=== PATIENT | female | born 2000 | race Caucasian/White ===

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

== ENCOUNTER 2021-06-14 16:56 | Emergency (ER) | payer OTHER, SELFPAY ==
--- NOTE | ~2021-06-14 | XR_ITS ---
EXAMINATION: XR chest 2V DATE: 06/14/2021 17:31 INDICATION: Chest tightness after taking decongestant TECHNIQUE: PA and lateral views of the chest were obtained. COMPARISON: None FINDINGS: The lungs are clear with no focal airspace opacities, pulmonary edema, pleural effusion or pneumothor ax. The cardiomediastinal silhouette is normal. Chronic appearing mild anterior wedging of a midthora cic vertebral body, likely T7. IMPRESSION: 1. No acute cardiopulmonary disease. Reviewed, dictated and finalized at location A.
[2021-06-14 17:07] VITALS: BP 134/77; PULSE 102; RESP 16; TEMP 37.1; O2SAT 99
--- NOTE | 2021-06-14 17:34 | ED.GENADULT ---
HPI - General Adult General Chief complaint: Upper Respiratory Infection Stated complaint: congestion/chest tightness Time Seen by Provider: 06/14/21 17:10 Source: patient and RN notes reviewed Mode of arrival: ambulatory Limitations: no limitations History of Present Illness HPI narrative: 21-year-old female presents with complaints of sneezing, cough, and chest congestion, hives, chills and sweats, and fatigue for 3 days. Clarice reports getting a facial and becoming dizzy and breaking out with hives prior to this visit. ?Mucinex fast max DM, last today at noon and decreased po intake today. ?Dry cough with chest congestion. ?Rhinorrhea and nasal congestion. ?No sore throat. ?Denies facial or tongue swelling. ?No high fevers, drooling, neck or throat swelling. ?No chest pain, wheezing, or shortness of breath. ?Denies nausea, vomiting, and abdominal pain. ?Tolerating liquids well. ?LMP 05/30/21. Remains active. ?The patient reports she has not been diagnosed with COVID-19. ?The patient reports she is not waiting for the results of a COVID-19 lab test. ?The patient reports she does not have weakness, fatigue, or myalgia. The patient reports she does not have any loss of taste and diarrhea. ?Denies recent traveling. ?Denies concerns for COVID-19 or exposures. ?At this time, the patient is not suspected of having COVID-19. Some parts of this dictation were generated by voice recognition software and may contain typographical and/or grammatical inaccuracies. Related Data Home Medications Medication Instructions Recorded Confirmed drospirenone 3 mg-ethinyl 1 tablet PO DAILY 08/01/20 06/14/21 estradiol 0.02 mg tablet Allergies Allergy/AdvReac Type Severity Reaction Status Date / Time No Known Allergies Allergy Mild Verified 06/14/21 17:03 Review of Systems Review of Systems: Narrative: CONSTITUTIONAL: Denies fever. Complaints of sweats, chills, fatigue-Resolved. EYES: Denies visual changes, redness, discharge. ENT: Complains of rhinorrhea, congestion, sneezing. Denies sore throat, otalgia. CARDIOVASCULAR: Denies chest pain, palpitations, edema. RESPIRATORY: Denies dyspnea, wheezing. Complains of dry cough, chest congestion. GASTROINTESTINAL: Denies abdominal pain, nausea, vomiting, diarrhea. GENITOURINARY: Denies dysuria, hematuria, abnormal discharge. SKIN: Denies rash or itching. Complaints of hives-Resolved. MUSCULOSKELETAL: Denies acute back pain, joint pain, or myalgia. NEUROLOGIC: Denies numbness or focal weakness. Complains of dizziness-Resolved PSYCHIATRIC: Denies anxiety or depression. COUNTS INCLUDE 234 BEDS AT THE [facility] Past Medical History Medical History (Updated 06/15/21 @ 00:00 by Denilson Israel) Tonsil stone Surgical History Surgical History (Updated 06/14/21 @ 17:56 by ROLO Fulton) No significant past surgical history Family History Family History (Updated 06/14/21 @ 17:57 by ROLO Fulton) Father Hypercholesteremia Mother Hypercholesteremia Social History Social History (Updated 06/14/21 @ 17:57 by ROLO Fulton) Smoking status: Never smoker Tobacco type: cigarettes Second hand tobacco smoke exposure: No Alcohol intake: never Substance use: never Substance use type: does not use Living arrangements: with family Occupation/Education: student Gender identity (if verbalized by the patient): Female Comments At time of signature, agree with the nurse past medical, surgical, social, and family history. There is no relevant family history pertinent to the presenting complaint. Exam Narrative: Exam Narrative: GENERAL: This is a well-nourished, well-developed patient, in no apparent distress. Talks in full sentences and ambulates with steady gait without dyspnea. HEAD: Normocephalic, atraumatic. EYES: PERRL. Sclera clear/white. Vision is grossly intact. EARS: External ears normal, auditory canals clear and without drainage, TMs with mild effusion without erythema,
[2021-06-18 20:18] LABS: SARS-CoV-2 RNA PCR Negative
== END 2021-06-14 18:15 | disposition home or self-care (01) ==
PROVIDERS: Emergency Provider Nurse Practitioner Family; PCP Family Medicine
DX: J01.90 Acute sinusitis, unspecified (principal); Z20.822 Contact with and (suspected) exposure to COVID-19
CPT/HCPCS: 71046; 99213; C9803; G0463; U0003; U0005

== ENCOUNTER → 2021-09-26 14:30 | Outpatient (CLI) | payer OTHER, SELFPAY ==
--- NOTE | ~2021-09-26 | US_ITS ---
US axilla RT DATE: 09/26/2021 14:46 INDICATION: Localized swelling, mass or lump for one week, with pain, improving TECHNIQUE: Real-time imaging targeted to area of clinical complaint. COMPARISON: None FINDINGS: Real-time imaging was performed at the area of complaint at the right chest wall lateral to the, at the area of clinical complaint. No suspicious mass or shadowing is detected. IMPRESSION: No significant abnormality Reviewed, dictated and finalized at Location A. Reviewed, dictated and finalized at location A. IMPRESSION: No significant abnormality
== END ==
PROVIDERS: PCP Family Medicine; Visit Provider Family Medicine
DX: R22.0 Localized swelling, mass and lump, head (principal)
CPT/HCPCS: 76882

== ENCOUNTER 2021-09-28 12:33 | Emergency (ER) | payer OTHER, SELFPAY ==
[2021-09-28 12:58] VITALS: BP 135/71; PULSE 120; RESP 16; TEMP 37.1; O2SAT 100
--- NOTE | 2021-09-28 13:43 | ED.URI ---
HPI - URI/Sore Throat General Chief Complaint: Upper Respiratory Infection Stated Complaint: fever/body aches/chills/sore throat Time Seen by Provider: 09/28/21 13:15 Source: patient and RN notes reviewed Mode of arrival: ambulatory Limitations: no limitations History of Present Illness HPI Narrative: 21-year-old female who presents to [facility] with complaints of sore throat, fever, body aches and chills since yesterday with temperature of 100.5F. Patient states that her throat is extremely sore especially to swallowing, rates pain 05/10, has been taking Ibuprofen for her discomfort. patient has not had COVID vaccinations and she has to test once weekly at [facility] with last test on Friday which was negative. 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 MD elicited complaint: sore throat Related Data Home Medications Medication Instructions Recorded Confirmed drospirenone 3 mg-ethinyl 1 tablet PO DAILY 08/01/20 09/28/21 estradiol 0.02 mg tablet Allergies Allergy/AdvReac Type Severity Reaction Status Date / Time No Known Allergies Allergy Mild Verified 09/28/21 12:57 Review of Systems Review of Systems: CONSTITUTIONAL: Positive for fever, chills, or sweats. EYES: Denies visual changes, redness, or discharge. ENT: Denies rhinorrhea, congestion,positive for sore throat, no otalgia. CARDIOVASCULAR: Denies chest pain, palpitations, or edema. RESPIRATORY: Denies cough or dyspnea. GASTROINTESTINAL: Denies abdominal pain, nausea, vomiting, or diarrhea. GENITOURINARY: Denies dysuria or hematuria. SKIN: Denies rash or itching. MUSCULOSKELETAL: Denies back pain, joint pain, positive body aches. NEUROLOGIC: Denies headache, numbness, or weakness. PSYCHIATRIC: Denies anxiety or depression. All systems reviewed & are unremarkable except as noted in HPI and below PMFSH Past Medical History Medical History Tonsil stone Surgical History Surgical History No significant past surgical history Family History Family History Father Hypercholesteremia Mother Hypercholesteremia Social History Social History Smoking status: Never smoker Tobacco type: cigarettes Second hand tobacco smoke exposure: No Alcohol intake: never Substance use: never Substance use type: does not use Gender identity (if verbalized by the patient): Female Comments At time of signature, agree with nursing past medical, surgical, social and family history. There is no relevant family history pertinent to the presenting complaint Exam Narrative: GENERAL: Well-appearing, well-nourished, and in no acute distress. HEAD: Normocephalic, atraumatic. EYES: PERRLA and EOMI. ENT: Nares clear, no rhinorrhea or epistaxis. Mucous membranes moist.TM's normal with good light reflex, throat red no lesions or exudates, tonsils enlarged red and swollen with painful swallowing. NECK: Supple. bilateral lymphadenopathy CHEST: Clear to auscultation. No respiratory distress. no cough noted, respirations even and nonlabored SAO2 100% on room air. HEART: Regular rate and rhythm. No murmur heard. Normal peripheral pulses. ABDOMEN: Soft, nontender, nondistended, normal active bowel sounds. EXTREMITIES: Normal range of motion. No edema. SKIN: Warm, dry, no rash. NEURO: No focal deficits. Alert and oriented x3. Course Vital Signs Vital signs: Vital Signs Temperature 37.1 C 09/28/21 12:58 Pulse Rate 120 H 09/28/21 12:58 Respiratory Rate 16 09/28/21 12:58 Blood Pressure 135/71 09/28/21 12:58 Pulse Oximetry 100 09/28/21 12:58 Temperature 37.1 C 09/28/21 12:58 Pulse Rate 120 H 09/28/21 12:58 Respiratory Rate 16 09/28/21 12:58 B
[2021-09-29 18:23] LABS: SARS-CoV-2 RNA PCR Negative
== END 2021-09-28 14:02 | disposition home or self-care (01) ==
PROVIDERS: Emergency Provider Registered Nurse; PCP Family Medicine
DX: J03.90 Acute tonsillitis, unspecified (principal); Z20.822 Contact with and (suspected) exposure to COVID-19
CPT/HCPCS: 87081; 87880; 99213; C9803; G0463; U0003; U0005

== ENCOUNTER → 2021-11-28 02:23 | Outpatient (CLI) | payer OTHER, SELFPAY ==
[2021-11-28 21:06] LABS: SARS-CoV-2 RNA PCR Negative
== END ==
PROVIDERS: PCP Family Medicine; Visit Provider Physician Assistant
DX: J02.9 Acute pharyngitis, unspecified (principal); R09.81 Nasal congestion; R51.9 Headache, unspecified; Z20.822 Contact with and (suspected) exposure to COVID-19
CPT/HCPCS: C9803; U0003; U0005

== ENCOUNTER 2022-08-23 08:00 | Outpatient (RCR) | payer OTHER, SELFPAY ==
--- NOTE | 2022-07-30 10:46 | PTOPEVAL1 ---
Evaluation Information Assessment Status Evaluation Diagnosis dizziness Reported Pain Level Pain Score 0: Self Report Assessment PT Clinical Summary Clarice has the diagnosis of dizziness. She has had a recent fall with hitting the back of her head. And has had 2 previously diagnosed concussions. Her Dizziness Handicap index is 28/100. Her risk factors for dizziness include: allergy/sinus issues, head injury from fall, visual changes--is not wearing her glasses and vision is blurry. She reports increase symptoms with light, sounds, fatigue and quick, positional motions of head. Also reports changes in pressure of her ears. A neurologist appointment is in about 3 weeks. Skilled PT services are indicated for vestibular therapy/rehab for habituation exercises to retrain her vestibular system, with education for safety and home activities. Will reassess her vestibular system and monitor changes as treatment progresses. With the evaluation, testing for BPPV was negative ; symptoms were elicited with gaze stabilization and head motions R/L. Education provided for safety-- rest, eye focus to calm vestibular system and avoiding triggers of fatigue and quick head motions. Reinforced good resting and sleeping, good nutrition and taking allergy meds as needed. Plan of Care Interventions Neuro Re-education,Patient/Caregiver Education, Therapeutic Activities PT Services Indicated Yes Treatment Frequency and 1-2x/wk for 5 weeks, depending upon the severity Duration of her symptoms and her work/school schedule These treatments will address the objective and functional deficits as defined above. The patient will be advanced safely and appropriately in order for the patient to progress towards his/her prior level of function. Additional exercises will be introduced and as well as a comprehensive home exercise program upon discharge, if needed, ?to ensure carryover of functional gains achieved in the clinic. This treatment plan has been reviewed and agreement upon by the patient.
--- NOTE | 2022-08-15 09:11 | PCPTNOTE ---
Patient called & cancelled scheduled appointment this date due to can't make it.
--- NOTE | 2022-08-26 10:45 | PCPTNOTE ---
PHYSICAL THERAPY DISCHARGE 08-26-22 Attending Provider: Claudia Machado, ASTROPHYSICS PROFESSOR-C Patient:Clarice Vega Date of :2000 Clarice called today and canceled all of the appointments, due to the neurologist referring her to ENT and other treatment. Therefore she will be discharged at this time. She received 5 treatment sessions, from July 30 to August 23 for the diagnosis of dizziness. Thank you for referring this patient to [facility].
== END 2022-08-26 14:30 | disposition home or self-care (01) ==
LOC: ANHPT 08:00
PROVIDERS: PCP Family Medicine; Referring Provider Nurse Practitioner; Visit Provider Nurse Practitioner
DX: R42 Dizziness and giddiness (principal)
CPT/HCPCS: 97110; 97140; 97162; 97530

== ENCOUNTER 2022-09-03 15:38 | Outpatient (CLI) | payer OTHER, SELFPAY ==
--- NOTE | ~2022-09-03 | MR_ITS ---
EXAMINATION: MR brain/brain stem wo con DATE: 09/04/2022 10:08 CDT INDICATION: Dizziness and giddiness TECHNIQUE: Magnetic resonance imaging (MRI) of the brain and brainstem was performed without intraven ous contrast. Sequences included sagittal and axial T1-weighted SE, axial diffusion-weighted FS SE, a xial T2*-weighted GRE, axial T2-weighted FLAIR Propeller, and axial T2-weighted Propeller. Apparent d iffusion coefficient (ADC) maps were created. COMPARISON: No prior studies for comparison. FINDINGS: The brain volume and ventricular system are within normal limits. The brain parenchymal si gnal intensity pattern and aiken/white matter is normal and there is no evidence of hemorrhage, space occupying masses or infarctions. The flow signal voids of the major arterial structures about the [place] and within the familia r dural venous sinuses appear grossly unremarkable and patent. The seventh and eighth cranial nerve complexes are normal. The mid sagittal image demonstrates a normal craniovertebral junction and rj us callosum. The paranasal sinuses are grossly unremarkable. IMPRESSION: 1: Normal MRI of the brain. Reviewed, dictated and finalized at location B. IMPRESSION: 1: Normal MRI of the brain.
== END 2022-09-03 15:39 | disposition home or self-care (01) ==
LOC: ANHIMG 15:40
PROVIDERS: PCP Nurse Practitioner; Visit Provider Student in an Organized Health Care Education/Training Program
DX: R42 Dizziness and giddiness (principal)
CPT/HCPCS: 70551

== ENCOUNTER 2023-04-05 04:10 | Emergency (ER) | payer OTHER, SELFPAY ==
--- NOTE | ~2023-04-05 | CT_ITS ---
EXAMINATION: CT abdomen pelvis wo con DATE: 04/05/2023 05:47 INDICATION: Bilateral flank pain. Vomiting. TECHNIQUE: Computed tomography (CT) of the abdomen and pelvis was performed without intravenous contr ast. Automated exposure control and iterative reconstruction technique were employed. The dose-length product was 193.99 mGy-cm. COMPARISON: None. FINDINGS: The visualized portions of the lung bases demonstrate minimal atelectasis of the left. No p leural effusion. The heart size is normal. No pericardial effusion. The liver, gallbladder, spleen, p ancreas, adrenal glands, and kidneys are normal. There is no urolithiasis. Small calcifications in th e pelvis are likely phleboliths. There are no dilated loops of bowel. The appendix is normal. There a re no pathologically enlarged lymph nodes. There is no free intraperitoneal fluid. The bones are unre markable. IMPRESSION: 1. No urolithiasis. Reviewed, dictated and finalized at location E. IMPRESSION: 1. No urolithiasis.
[2023-04-05 04:14] VITALS: BP 125/64; PULSE 87; RESP 18; TEMP 36.7; O2SAT 100
--- NOTE | 2023-04-05 04:45 | ED.GENADULT ---
HPI - General Adult General Chief complaint: Back Pain/Injury Stated complaint: back pain w/ vomiting Time Seen by Provider: 04/05/23 04:34 History of Present Illness HPI narrative: Patient 22-year-old female who presents the emergency department with chief complaint of back pain. Patient reports that she was at home and was sleeping and had pain that suddenly woke her up on the bilateral flank area patient states that the pain started to radiate and reports that she developed nausea and had an episode of vomiting. Patient denies fever reports no new significant changes in activity no heavy lifting no trauma. Patient denies fever denies blood in her urine reports her last menstrual period was about 1 week ago Related Data Home Medications Medication Instructions Recorded Confirmed drospirenone 3 mg-ethinyl 1 tablet PO DAILY 08/01/20 01/13/23 estradiol 0.02 mg tablet (HILDA (28)) escitalopram oxalate 5 mg tablet 5 mg PO 03/26/23 03/26/23 Allergies Allergy/AdvReac Type Severity Reaction Status Date / Time No Known Allergies Allergy Mild Verified 04/05/23 04:24 Review of Systems Review of Systems: A 10 system review of systems was completed on the patient and is negative except for what is stated in the HPI. Nursing and ancillary documentation was reviewed. [facility] Past Medical History Medical History Encounter for screening for COVID-19 Insect bite Lump Tinea Tonsil stone Surgical History Surgical History No significant past surgical history Family History Family History Father Hypercholesteremia Mother Hypercholesteremia Social History Social History Smoking status: Never smoker Tobacco type: cigarettes Second hand tobacco smoke exposure: No Alcohol intake: never Substance use: never Substance use type: does not use Lack of Transportation: No Lack of Food: Never True Current Housing: I Have Housing Concerned About Future Housing: No Difficulty Paying Gas/Electric Bills: No Difficulty Paying for Meds: No Currently Unemployed: No Education: High School Diploma/GED Difficulty w/ Childcare or Family Care: No Living arrangements: with family Occupation/Education: student Gender identity (if verbalized by the patient): Female Exam Narrative: GENERAL: Well-appearing, well-nourished, and in no acute distress. HEAD: Normocephalic, atraumatic. EYES: PERRLA and EOMI. ENT: Nares clear, no rhinorrhea or epistaxis. Mucous membranes moist. NECK: Supple. CHEST: Clear to auscultation. No respiratory distress. HEART: Regular rate and rhythm. No murmur heard. Normal peripheral pulses. ABDOMEN: Soft, minimal tenderness in the right lower quadrant, no guarding no rebound, nondistended, normal active bowel sounds. EXTREMITIES: Normal range of motion. No edema. SKIN: Warm, dry, no rash. NEURO: No focal deficits. Alert and oriented x3. PSYCH: Normal mood and affect. Course Vital Signs Vital signs: Vital Signs Temperature 36.7 C 04/05/23 04:14 Pulse Rate 87 04/05/23 04:14 Respiratory Rate 18 04/05/23 04:14 Blood Pressure 125/64 04/05/23 04:14 Pulse Oximetry 100 04/05/23 04:14 Oxygen Delivery Room Air 04/05/23 04:14 Temperature 36.7 C 04/05/23 04:14 Pulse Rate 87 04/05/23 04:14 Respiratory Rate 18 04/05/23 04:14 Blood Pressure 125/64 04/05/23 04:14 Pulse Oximetry 100 04/05/23 04:14 Oxygen Delivery Room Air 04/05/23 04:14 Medical Decision Making [facility] Narrative Medical decision making narrative: Differential diagnosis includes flank pain, musculoskeletal pain, pyelonephritis, kidney stone, cholelithiasis, appendicitis Laboratory studies were obtained which were wit
[2023-04-05 05:05] LABS: Appearance Urine Turbid (Clear); Bacteria Urine None Seen /hpf; Bilirubin Urine Negative (Negative); Blood Urine Negative (Negative); Color Urine Yellow (Yellow); Glucose Urine UA Negative (Negative); Ketones Urine Negative (Negative); Leukocyte Esterase Ur Trace LEU/UL (Negative); Nitrate Urine Negative (Negative); Non Pathogenic Casts 0-2; Protein Urine Trace mg/dL (Negative); RBC Urine 0-2 /hpf (0-2); Specific Grav Ur 1.021 (1.001-1.035); Squamous Epithelial Cell Urine Occasional /hpf (Few); Urobilinogen Urine 0.2 mg/dL (<2.0); WBC Urine 0-5 /hpf; pH Urine >=9.0 (5.0-9.0)
[2023-04-05] MEDS: ONDANSETRON INJ 4 MG/2 ML VIAL IV PUSH (05:12)
[2023-04-05] MEDS: SODIUM CHLORIDE 0.9% IV 1,000 ML 999 ML IV CONT (05:13)
[2023-04-05 05:17] LABS: Add Urine Microscopic? YES
[2023-04-05 05:18] LABS: Basophils Percent Auto 0.2 % (0.2-1.2); Eosinophils Percent Auto 0.1 % (0-4.4); Hematocrit 40.2 % (37.0-47.0); Immature Granulocyte Absolute 0.04 K/mm3 (0.00-0.031); Immature Granulocyte Percent A 0.3 % (0-0.5); Lymphocytes Absolute Auto 1.89 K/mm3 (0.9-3.2); Lymphocytes Percent Auto 15.3 % (18.3-44.2); Mean Corpuscular HGB Conc 32.3 g/dl (32-36); Mean Corpuscular Hemoglobin 27.4 pg (26-34); Mean Corpuscular Volume 84.6 fl (80-100); Mean Platelet Volume 9.3 fl (7.4-10.4); Monocytes Absolute Auto 0.8 K/mm3 (0.1-0.6); Monocytes Percent Auto 6.7 % (2.6-8.5); Neutrophils Absolute Auto 9.5 K/mm3 (1.3-6.7); Neutrophils Percent Auto 77.4 % (45.5-73.1); Platelet Count Result 222 k/mm3 (150-375); Red Blood Count 4.75 M/mm3 (4.2-5.4); White Blood Count 12.3 K/mm3 (4.5-10.0)
[2023-04-05 05:27] LABS: Alanine Aminotransferase 21 U/L (6-35); Albumin Level 4.4 g/dL (3.5-5.1); Alkaline Phosphatase 50 U/L (38-126); Anion Gap 7 mmol/L (8-16); Aspartate Amino Transferase 24 U/L (14-36); Bilirubin,Total 0.6 mg/dL (0.2-1.3); Blood Urea Nitrogen 11 mg/dL (7-17); Calcium 8.8 mg/dL (8.4-10.2); Carbon Dioxide 27 mmol/L (22-30); Chloride 103 mmol/L (98-107); Estimated CRCL calculation 70 ml/min; Estimated Glomerular Filt Rate > 60; Glucose 118 mg/dL (65-110); Lipase 72 U/L (23-300); Potassium 3.8 mmol/L (3.4-5.0); Sodium 137 mmol/L (137-145)
[2023-04-05 05:35] LABS: Urine Pregnancy Test Negative
[2023-04-05 05:36] LABS: Pregnancy On Board Control Positive
== END 2023-04-05 06:38 | disposition home or self-care (01) ==
PROVIDERS: Emergency Provider Emergency Medicine; PCP Family Medicine
DX: R10.9 Unspecified abdominal pain (principal)
CPT/HCPCS: 36415; 74176; 80053; 81001; 81025; 83690; 85025; 96361; 96374; 99284; J2405; J7030

== ENCOUNTER 2023-10-17 16:57 | Emergency (ER) | payer OTHER, SELFPAY ==
[2023-10-17 17:01] VITALS: BP 118/78; PULSE 83; RESP 16; TEMP 36.9; O2SAT 100
--- NOTE | 2023-10-17 17:43 | ED.URI ---
HPI - URI/Sore Throat General Chief Complaint: Upper Respiratory Infection Stated Complaint: Wheezing;Cough Time Seen by Provider: 10/17/23 17:24 Source: patient and RN notes reviewed Mode of arrival: ambulatory Limitations: no limitations History of Present Illness HPI Narrative: Patient presents today complaining of a cough and congestion x2 weeks. Patient was initially put on Augmentin for 10 days by her PCP. States no improvement with this antibiotic. Then she was placed on doxycycline for which she is currently on day 3. She was also given a Medrol Dosepak, but has not yet started this. 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 No history of asthma. She is a nonsmoker. She has not been taking any [id number] medication for symptoms prior to arrival. Related Data Home Medications Medication Instructions Recorded Confirmed drospirenone 3 mg-ethinyl 1 tablet PO DAILY 08/01/20 10/17/23 estradiol 0.02 mg tablet (HILDA (28)) Allergies Allergy/AdvReac Type Severity Reaction Status Date / Time No Known Allergies Allergy Mild Verified 10/17/23 17:04 Review of Systems Review of Systems: CONSTITUTIONAL: Denies body aches, fever, chills, or sweats. EYES: Denies visual changes, redness, or discharge. ENT: Denies rhinorrhea, sore throat, or otalgia.+ congestion CARDIOVASCULAR: Denies chest pain, palpitations, or edema. RESPIRATORY: + cough, shortness of breath, wheezing GASTROINTESTINAL: Denies abdominal pain, nausea, vomiting, or diarrhea. GENITOURINARY: Denies dysuria or hematuria. SKIN: Denies rash, itching, or wounds. MUSCULOSKELETAL: Denies back pain, joint pain, or myalgia. NEUROLOGIC: Denies headache, numbness, tingling, or weakness. PSYCH: Denies depression or anxiety. [facility] Past Medical History Medical History Encounter for screening for COVID-19 Insect bite Lump Tinea Tonsil stone Surgical History Surgical History No significant past surgical history Family History Family History Father Hypercholesteremia Mother Hypercholesteremia Social History Social History Smoking status: Never smoker Tobacco type: cigarettes Second hand tobacco smoke exposure: No Alcohol intake: never Substance use: never Substance use type: does not use Lack of Transportation: No Lack of Food: Never True Current Housing: I Have Housing Concerned About Future Housing: No Difficulty Paying Gas/Electric Bills: No Difficulty Paying for Meds: No Currently Unemployed: No Education: High School Diploma/GED Difficulty w/ Childcare or Family Care: No Living arrangements: with family Occupation/Education: student Gender identity (if verbalized by the patient): Female Comments At time of signature, I have reviewed and agree with nursing past medical, surgical, social and family history unless otherwise noted. Please see nursing chart for further information. There is no relevant family history pertinent to the presenting complaint Exam Narrative: GENERAL: Well-appearing, well-nourished, and in no acute distress. HEAD: Normocephalic, atraumatic. EYES: EOMI. No redness or drainage. Conjunctivae normal. ENT: Mucous membranes pink and moist. Nares congestive. No rhinorrhea. TMs normal bilaterally. Throat normal. Uvula midline. NECK: Normal AROM. Supple. No lymphadenopathy. CHEST: No respiratory distress. Expiratory wheezing throughout HEART: Regular rate and rhythm. No murmur appreciated. Normal peripheral pulses. EXTREMITIES: Normal range of motion. No edema. SKIN: Warm, dry, no rash. Capillary refill normal. Normal skin turgor. NEURO: No focal
[2023-10-17] MEDS: IPRATROPIUM BR 0.02% INH SOLN 0.5 MG/2.5 ML VIAL INHALATION (17:45)
[2023-10-17] MEDS: ALBUTEROL SULFATE NEB 2.5 MG/3 ML INH INHALATION (17:45)
== END 2023-10-17 18:09 | disposition home or self-care (01) ==
PROVIDERS: Emergency Provider Nurse Practitioner; PCP Family Medicine
DX: J40 Bronchitis, not specified as acute or chronic (principal)
CPT/HCPCS: 99213; G0463

== ENCOUNTER 2024-07-31 19:17 | Emergency (ER) | payer OTHER, SELFPAY ==
--- NOTE | 2024-07-31 19:21 | ED.URI ---
HPI - URI/Sore Throat General Chief Complaint: Upper Respiratory Infection Stated Complaint: Congestion Source: patient and RN notes reviewed Mode of arrival: ambulatory Limitations: no limitations History of Present Illness HPI Narrative: 24 y/o female presented for c/o nasal congestion for 3 days. Endorses hoarse voice and body aches today. States headache and sore throat have resolved from yesterday. Denies sob, wheezing, n/v/d/f/c. Taking mucinex and Afrin spray. MD elicited complaint: cough Related Data Home Medications Medication Instructions Recorded Confirmed drospirenone 3 mg-ethinyl tablet 07/31/24 07/31/24 estradiol 0.02 mg tablet escitalopram oxalate 5 mg tablet mg 07/31/24 Allergies Allergy/AdvReac Type Severity Reaction Status Date / Time No Known Allergies Allergy Mild Verified 10/17/23 17:04 Review of Systems Review of Systems: CONSTITUTIONAL: denies malaise, chills, sweats, fever EYES: Denies visual changes, redness, or discharge ENT: Reports rhinorrhea, congestion, denies sinus pain, otalgia, sore throat CARDIOVASCULAR: Denies chest pain, palpitations, edema RESPIRATORY: Denies dyspnea GASTROINTESTINAL: Denies abdominal pain, nausea, vomiting, diarrhea SKIN: Denies rash or itching MUSCULOSKELETAL: Endorses myalgia PMFSH Past Medical History Medical History Encounter for screening for COVID-19 Insect bite Lump Tinea Tonsil stone Surgical History Surgical History No significant past surgical history Family History Family History Father Hypercholesteremia Mother Hypercholesteremia Social History Social History Smoking status: Never smoker Tobacco type: cigarettes Second hand tobacco smoke exposure: No Alcohol intake: never Substance use: never Substance use type: does not use Lack of Transportation: No Lack of Food: Never True Current Housing: I Have Housing Concerned About Future Housing: No Difficulty Paying Gas/Electric Bills: No Difficulty Paying for Meds: No Currently Unemployed: No Education: High School Diploma/GED Difficulty w/ Childcare or Family Care: No Living arrangements: with family Occupation/Education: student Gender identity (if verbalized by the patient): Female Exam Narrative: GENERAL: well-appearing EYES: conjunctivae clear ENT: Mucous membranes moist. Nasal congetion. TMs pearly aiken with normal light reflex and clear effusion bilaterally; no tragal tenderness. Oropharynx not erythematous without lesions or exudate, no drooling, no hoarseness, no trismus, uvula midline. No tripod positioning, muffled voice, soft palate or pharyngeal wall bulging NECK: Supple. No lymphadenopathy CHEST: Clear to auscultation, breath sounds equal. HEART: Regular rate and rhythm. SKIN: Warm, dry, no rash. NEURO: Alert and oriented x3. Course Course Emergency Course: Patient is aware of diagnosis, understands and agrees to treatment plan. Anticipatory guidance given. Patient agrees to follow-up as directed and is aware of reasons to seek care at the emergency department. Portions of this record may have been created with voice recognition software Level of Care: Express Care Visit Vital Signs Vital signs: Vital Signs Temperature 97.9 F 07/31/24 19:22 Pulse Rate 88 07/31/24 19:22 Respiratory Rate 16 07/31/24 19:22 Blood Pressure 118/77 07/31/24 19:22 Pulse Oximetry 97 07/31/24 19:22 Temperature 97.9 F 07/31/24 19:22 Pulse Rate 88 07/31/24 19:22 Respiratory Rate 16 07/31/24 19:22 Blood Pressure 118/77 07/31/24 19:22 Pulse Oximetry 97 07/31/24 19:22 reviewed MDM - URI/Sore Throat MDM Narrative Medical decision making narrative: Negative COVID. Di
[2024-07-31 19:22] VITALS: BP 118/77; PULSE 88; RESP 16; TEMP 36.6; O2SAT 97
== END 2024-07-31 19:58 | disposition home or self-care (01) ==
PROVIDERS: Emergency Provider Nurse Practitioner Family; PCP Family Medicine
DX: B34.9 Viral infection, unspecified (principal)
CPT/HCPCS: 99211; G0463

== ENCOUNTER 2024-08-21 18:32 | Emergency (ER) | payer OTHER, SELFPAY ==
--- NOTE | 2024-08-21 18:35 | ED.URI ---
HPI - URI/Sore Throat General Chief Complaint: Upper Respiratory Infection Stated Complaint: cough,white pockets in throat Time Seen by Provider: 08/21/24 18:55 Source: patient and RN notes reviewed Mode of arrival: ambulatory Limitations: no limitations History of Present Illness HPI Narrative: 24-year-old female presents with concern for sore throat, cough and chest congestion. Reports sore throat started about 3 days ago. Reports she was here 3-4 weeks ago for viral symptoms. Reports the viral symptoms moved from her sinuses to her chest. She reports chest congestion and discomfort with coughing. She denies fever. Reports she took Mucinex MD elicited complaint: cough and sore throat Related Data Home Medications Medication Instructions Recorded Confirmed drospirenone 3 mg-ethinyl 1 tablet PO DAILY 07/31/24 08/21/24 estradiol 0.02 mg tablet escitalopram oxalate 5 mg tablet 5 mg PO DAILY 07/31/24 08/21/24 Allergies Allergy/AdvReac Type Severity Reaction Status Date / Time No Known Allergies Allergy Mild Verified 08/21/24 18:46 Review of Systems Review of Systems: CONSTITUTIONAL: Denies malaise, chills, sweats, or fever. EYES: Denies visual changes, redness, or discharge. ENT: Reports rhinorrhea, congestion, sinus pain, and sore throat. CARDIOVASCULAR: Denies chest pain, palpitations, or edema. RESPIRATORY: Reports cough and chest congestion. Denies dyspnea. GASTROINTESTINAL: Denies abdominal pain, nausea, vomiting, diarrhea SKIN: Denies rash or itching. MUSCULOSKELETAL: Denies myalgia. NEUROLOGIC: Denies headache. All systems reviewed & are unremarkable except as noted in HPI and below PMFSH Past Medical History Medical History Encounter for screening for COVID-19 Insect bite Lump Tinea Tonsil stone Surgical History Surgical History No significant past surgical history Family History Family History Father Hypercholesteremia Mother Hypercholesteremia Social History Social History Smoking status: Never smoker Tobacco type: cigarettes Second hand tobacco smoke exposure: No Alcohol intake: never Substance use: never Substance use type: does not use Lack of Transportation: No Lack of Food: Never True Current Housing: I Have Housing Concerned About Future Housing: No Difficulty Paying Gas/Electric Bills: No Difficulty Paying for Meds: No Currently Unemployed: No Education: High School Diploma/GED Difficulty w/ Childcare or Family Care: No Living arrangements: with family Occupation/Education: student Gender identity (if verbalized by the patient): Female Comments At time of signature, agree with nursing past medical, surgical, social and family history. There is no relevant family history pertinent to the presenting complaint Exam Narrative: GENERAL: Nontoxic-appearing, well-nourished, and in no acute distress. HEAD: Normocephalic EYES: PERRLA, conjunctivae clear ENT: Nares clear. Mucous membranes moist. TM pearly aiken with dull light reflex bilaterally; no tragal tenderness. Oropharynx not erythematous without lesions. Tonsils not enlarged and without exudate, no drooling, no hoarseness, no trismus, uvula midline. NECK: Supple. No lymphadenopathy CHEST: Clear to auscultation, breath sounds equal. No wheezing, rhonchi, rales, or stridor. No respiratory distress, speaks in full sentences. HEART: Regular rate and rhythm. No murmur heard. SKIN: Warm, dry, no rash. NEURO: Alert and oriented x3. PSYCH: Normal mood and affect Course Course Emergency Course: Patient is aware of diagnosis, understands and agrees to treatment plan. Anticipatory guidance given. Patient agrees to follow-up as directed and is aware of reasons to seek car
[2024-08-21 18:49] VITALS: BP 114/75; PULSE 74; RESP 16; TEMP 36.7; O2SAT 99
[2024-08-21 18:56] LABS: EDSTREPNEGPOS1 Negative (Negative)
== END 2024-08-21 19:05 | disposition home or self-care (01) ==
PROVIDERS: Emergency Provider Nurse Practitioner; PCP Family Medicine
DX: J32.9 Chronic sinusitis, unspecified (principal); J40 Bronchitis, not specified as acute or chronic
CPT/HCPCS: 87081; 87880; 99213; G0463

== ENCOUNTER 2024-09-27 15:56 | Outpatient (CLI) | payer OTHER, SELFPAY ==
--- NOTE | ~2024-09-27 | XR_ITS ---
EXAMINATION: XR chest 2V DATE: 09/27/2024 16:09 INDICATION: Posterior left-sided chest pain TECHNIQUE: PA and lateral views of the chest were obtained. COMPARISON: Chest radiograph dated 06/14/2021 FINDINGS: The lungs remain clear with no focal airspace opacities, pulmonary edema, pleural effusion or pneumot horax. The cardiomediastinal silhouette is normal. Persistent mild anterior wedging of a few mid thor acic vertebral bodies. IMPRESSION: 1. No acute cardiopulmonary disease. Reviewed, dictated and finalized at location A.
== END 2024-09-27 15:57 | disposition home or self-care (01) ==
LOC: GOSHIMG 15:57
PROVIDERS: PCP Family Medicine; Visit Provider Nurse Practitioner
DX: R52 Pain, unspecified (principal)
CPT/HCPCS: 71046

== ENCOUNTER 2025-01-17 11:08 | Outpatient (CLI) | payer OTHER, SELFPAY ==
[2025-01-17 14:31] LABS: Influenza A QL RT-PCR Positive (Negative); Influenza B QL RT-PCR Negative (Negative); RSV RNA, RT-PCR Negative (Negative); SARS-CoV-2 RNA PCR Negative (Negative)
== END 2025-01-17 11:09 | disposition home or self-care (01) ==
LOC: ANHGOSHLAB 11:09
PROVIDERS: PCP Family Medicine; Visit Provider Nurse Practitioner
DX: R05.9 Cough, unspecified (principal)
CPT/HCPCS: 87637

== ENCOUNTER 2025-09-25 17:40 | Emergency (ER) | payer OTHER, SELFPAY ==
[2025-09-25 17:51] VITALS: BP 117/72; PULSE 107; RESP 16; TEMP 37.2; O2SAT 100
--- NOTE | 2025-09-25 18:11 | ED.GENADULT ---
HPI - General Adult General Chief complaint: Upper Respiratory Infection Stated complaint: Body aches/Congestion Time Seen by Provider: 09/25/25 18:12 Source: patient Mode of arrival: ambulatory Limitations: no limitations History of Present Illness HPI narrative: 25-year-old female patient presents to [facility] with complaints of cold symptoms that started approximately 3 days ago. Patient states she has had slight sore throat, sneezing, runny nose, stuffy nose, body aches, fatigue and just overall not feeling well. Patient denies any fevers that she is aware of. Denies chest pain or shortness of breath. Denies any abdominal pain nausea vomiting or diarrhea. Denies any current . Patient states she has not taken anything for her symptoms. Related Data Home Medications ?Medication ?Instructions ?Recorded ?Confirmed ?Last Taken ?Type drospirenone 3 mg-ethinyl 1 tablet PO DAILY 07/31/24 05/05/25 Unknown History estradiol 0.02 mg tablet escitalopram oxalate 5 mg tablet 5 mg PO DAILY 07/31/24 05/05/25 Unknown History Allergies Allergy/AdvReac Type Severity Reaction Status Date / Time No Known Allergies Allergy Mild Verified 09/25/25 18:00 Review of Systems Review of Systems: CONSTITUTIONAL: Denies fever, Positive body aches and chills, denies sweats. positive fatigue EYES: Denies visual changes, redness, or discharge. ENT: positive rhinorrhea, congestion, sore throat, denies otalgia. CARDIOVASCULAR: Denies chest pain, palpitations, or edema. RESPIRATORY: positive mild nonproductive cough denies dyspnea. GASTROINTESTINAL: Denies abdominal pain, nausea, vomiting, or diarrhea. GENITOURINARY: Denies dysuria or hematuria. SKIN: Denies rash or itching. MUSCULOSKELETAL: Denies back pain, joint pain, or myalgia. NEUROLOGIC: Denies headache, numbness, or weakness. PSYCHIATRIC: Denies anxiety or depression. [facility] Past Medical History Medical History Tinea Insect bite Encounter for screening for COVID-19 Lump Tonsil stone Surgical History Surgical History No significant past surgical history Family History Family History Father Hypercholesteremia Mother Hypercholesteremia Social History Social History Smoking status: Never smoker Tobacco type: cigarettes Second hand tobacco smoke exposure: No Alcohol intake: never Substance use: never Substance use type: does not use Lack of Transportation: No Lack of Food: Never True Current Housing: I Have Housing Concerned About Future Housing: No Difficulty Paying Gas/Electric Bills: No Difficulty Paying for Meds: No Currently Unemployed: No Education: High School Diploma/GED Difficulty w/ Childcare or Family Care: No Living arrangements: with family Occupation/Education: student Gender identity (if verbalized by the patient): Female Comments At the time of my signature I agree with nursing past medical history, surgical, social, and family history. There is no relevant family history pertinent to the presenting complaint. Exam Narrative: GENERAL: Well-appearing, well-nourished, and in no acute distress. HEAD: Normocephalic, atraumatic. EYES: PERRLA and EOMI. ENT: Nares with erythema edema noted bilaterally, no rhinorrhea or epistaxis. Mucous membranes moist. posterior pharynx with no erythema, tonsillar enlargement, exudates or lesions present. Bilateral TMs are clear no erythema or foreign bodies the canal. Patient does have a raspy voice noted during exam. NECK: Supple. No lymphadenopathy CHEST: Clear to auscultation. No respiratory distress. HEART: Regular rate and rhythm. No murmur heard. Normal peripheral pulses. ABDOMEN: Soft, nontender, nondistended, normal active bowel sounds. EXTREMITIES: Normal range of motion. No edema. SKIN: Warm, dry, no rash. NEURO: No focal deficits. Alert and oriented x3. Course Course Level of Care: Express Care Visit Vital Signs Vital signs: Vital Signs Temperature 37.2 C 09/25/25 17:51 Pulse Rate 107 H 09/25/25 17:51 Respiratory Rate 16 09/25/25 17:51 Blood Pressure 117/72 09/25/25 17:51 Pulse Oximetry 100 09/25/25 17:51 Temperature 37.2 C 09/25/25 17:51 Pulse Rate 107 H 09/25/25 17:51 Respiratory Rate 16 09/25/25 17:51 Blood Pressure 117/72 09/25/25 17:51 Pulse Oximetry 100 09/25/25 17:51 Vital signs reviewed. Medical Decision Making MDM Narrative Medical decision making narrative: Plan of care for patient is to test her today for influenza, COVID a and strep. If these come back negative most likely will discharge with supportive care. We will reassessed once these labs have resulted. Differential Diagnosis Differential Diagnosis: Differential diagnosis: Allergic rhinitis, chronic sinusitis, tonsillitis, acute sinusitis, infectious mononucleosis, seasonal influenza, pertussis, diphtheria, meningococcal disease, viral syndrome, viral bronchitis, RSV, COVID-19 Vital Signs Vital Signs: Vital Signs Temperature 37.2 C 09/25/25 17:51 Pulse Rate 107 H 09/25/25 17:51 Respiratory Rate 16 09/25/25 17:51 Blood Pressure 117/72 09/25/25 17:51 Pulse Oximetry 100 09/25/25 17:51 Temperature 37.2 C 09/25/25 17:51 Pulse Rate 107 H 09/25/25 17:51 Respiratory Rate 16 09/25/25 17:51 Blood Pressure 117/72 09/25/25 17:51 Pulse Oximetry 100 09/25/25 17:51 Critical Care Time Critical Care Time Critical Care Time: No Discharge Plan Discharge Clinical Impression: Viral URI Patient Disposition: Home Condition: Stable Instructions: Antibiotic Form, Viral Syndrome (ED) Additional Instructions: Viral illness may last between 7-12days; antibiotic is NOT recommended at this time. May take extra vitamins such as vitamin-C, vitamin-D and zinc to help decrease how long you are sick and improve your immune system. May use hot tea with honey to help with any type of sore throat or throat irritation this is a natural cough suppressant, and natural anti-inflammatory. Recommend antihistamine such as Benadryl at night time and Claritin/Zyrtec/Karen during the day Cough syrup may cause drowsiness; avoid driving or take it at night time. Also, recommend symptomatic treatment includes: rest, fluids, and increase humidity of the air at home. Recommend Acetaminophen or nonsteroidal anti-inflammatory agents (NSAIDs) as directed in the bottle to reduce fever and/pain/headache. Avoid smoking/second-hand smoke. Limit visits to areas with large crowds. Please schedule a follow-up visit with your personal physician for further evaluation and treatment within 3-5days. Including recheck and discussion of your blood pressure. If your symptoms persist, change or worsen significantly before you can contact your personal physician then please, without delay, go to the emergency department for further evaluation. Patient Language: Canadian Prescriptions: No Action escitalopram oxalate 5 mg tablet 5 mg PO DAILY drospirenone-ethinyl estradiol 3-0.02 mg tablet 1 tablet PO DAILY atorvastatin [Lipitor] 20 mg tablet 20 mg PO QHS Qty: 90 1RF Rx Instructions: Take 1/2 pill nightly for one week, then increase to 1 whole pill nightly Follow-up/Referrals: Yaa Salamanca DO [Primary Care Provider, Family Practice] Stand Alone Forms: Work/School Release IP Time of Disposition: 18:33
[2025-09-25 18:39] LABS: EDCOVIDSCREEN Negative (Negative); EDINFLUASCREEN Negative (Negative); EDINFLUBSCREEN Negative (Negative); EDSTREPNEGPOS1 Negative (Negative)
== END 2025-09-25 18:35 | disposition home or self-care (01) ==
PROVIDERS: Emergency Provider Nurse Practitioner Family; PCP Family Medicine
DX: J06.9 Acute upper respiratory infection, unspecified (principal); Z20.822 Contact with and (suspected) exposure to COVID-19
CPT/HCPCS: 87081; 87426; 87804; 87880; 99213; G0463